=== PATIENT | male | born 1980 | race Caucasian/White ===

== ENCOUNTER → 2022-06-30 | Outpatient (CLI) | payer OTHER ==
--- NOTE | 2022-06-30 10:11 | US ---
EXAMINATION TYPE: US scrotum with doppler. Grayscale and color Doppler Duplex imaging performed of briana mendez scrotum. DATE OF EXAM: 06/30/2022 COMPARISON: NONE CLINICAL HISTORY: N50.82 SCROTAL PAIN. Left testicle pain x 2 days, getting worse EXAM MEASUREMENTS: TESTICLES: Right Testicle: 6.1 x 2.3 x 4.1 cm Left Testicle: 6.0 x 2.7 x 4.0 cm EPIDIDYMIS HEAD: Right Epididymis: 1.2 cm Left Epididymis: 1.1 cm Doppler performed to assess for testicular vascularity; good bilateral color flow and waveforms are s een. There is no evidence of testicular torsion. Presence of hydroceles: no Presence of varicoceles: prominent vascularity lateral to left testicle increased vascularity left testicle heterogeneous left epididymis with increased vascularity IMPRESSION: 1. Correlate for left-sided epididymitis. 2. Varicoceles noted on the left.
== END | disposition home or self-care (01) ==
LOC: RADUSWWP 09:21
PROVIDERS: ATTEND Student in an Organized Health Care Education/Training Program
DX: I86.1 Scrotal varices (principal)
CPT/HCPCS: 76870; 93975